=== PATIENT | female | born 1955 | race African-American/Black ===

== ENCOUNTER 2017-07-29 15:04 | Emergency (ER) | payer MEDICARE, MEDICAID ==
[~2017-07-29] VITALS: Ht 167.6 cm; Wt 108.9 kg
[2017-07-29] MEDS ORDERED: TRAMADOL HCL50 MG ORAL (17:10)
[2017-07-29] MEDS ORDERED: IBUPROFEN600 MG ORAL (17:10)
[2017-07-29 17:28] VITALS: BP 136/69
--- NOTE | 2017-08-01 20:01 | Emergency Room Report ---
History of Present Illness General Chief Complaint: Lower Extremity Injury Source: Patient Present Illness HPI The patient is a 62-year-old female presenting for left knee pain. She states that pain began 3 days ago after she slipped and felt knee bent at an awkward angle. Pain is now 9/10 dull ache and does not radiate. Worse with any movement. She denies falling or hitting the knee on any object. She denies any other symptoms Allergies: Coded Allergies: No Known Allergies (Unverified , 07/29/17) Patient History Past Medical History: see triage record Pertinent Family History: none Last Menstrual Period: n/a Reviewed Nursing Documentation: PMH: Agreed, PSxH: Agreed Nursing Documentation-PMH Past Medical History: No History, Except For Hx Hypertension: Yes Hx COPD: Yes Hx Gastrointestinal Problems: Yes - gerd, Hx Dialysis: No - osteoarthrits, HPV Review of Systems All Other Systems: negative except mentioned in HPI Physical Exam Vital Signs Date Time Temp Pulse Resp B/P (MAP) Pulse Ox O2 Delivery O2 Flow Rate FiO2 07/29/17 16:24 97.7 59 16 136/69 98 Room Air Sp02 EP Interpretation: reviewed, normal General Appearance: no apparent distress, alert, GCS 15, non-toxic Head: normocephalic, atraumatic Eyes: bilateral eye normal inspection, bilateral eye PERRL ENT: hearing grossly normal, normal pharynx, no angioedema, normal voice Musculoskeletal: normal range of motion, no calf tenderness, tender - medial L knee Neurologic: alert, oriented x3, responsive, motor strength/tone normal, sensory intact, speech normal Psychiatric: judgement/insight normal, memory normal, mood/affect normal, no suicidal/homicidal ideation Skin: normal color, no rash, warm/dry, well hydrated Procedures Splinting Splinting : Consent: Verbal Location: L knee Pre-Made Type: PORTILLO wrap Pre-Proc Neuro Vasc Exam: normal Post-Proc Neuro Vasc Exam: normal Patient Tolerated: Well Complications: None Medical Decision Making PA Attestation Dr. Del Cid is my supervising physician. Patient management was discussed with my supervising physician Diagnostic Impression: Primary Impression: Sprain, knee Qualified Codes: S83.92XA - Sprain of unspecified site of left knee, initial encounter ER Course The patient is a 62-year-old female presenting for left knee pain Ddx considered include but not limited to dislocation, sprain/strain, fracture, contusion PE: NAD L knee: There is tenderness to palpation of the medial region. No obvious deformity. No ecchymosis. No laxity. Full active range of motion. Portillo wrap was placed over the left knee in the patient will be discharged home with prescription for pain medications. She will followup with her primary doctor. She was told she may need MRI. ER precautions given Last Vital Signs Date Time Temp Pulse Resp B/P (MAP) Pulse Ox O2 Delivery O2 Flow Rate FiO2 07/29/17 17:28 97.7 71 22 136/69 100 Room Air Status: improved Disposition: HOME, SELF-CARE Condition: Improved Scripts Tramadol Hcl* (ULTRAM*) 50 Mg Tablet 50 MG ORAL Q6H Y for For Pain, #10 TAB 0 Refills Prov: FELICITAS SCHUSTER.Calin 07/29/17 Ibuprofen* (MOTRIN*) 600 Mg Tablet 600 MG ORAL Q8H Y for For Pain, #30 TAB 0 Refills Prov: FELICITAS SCHUSTER 07/29/17 Referrals: NOT CHOSEN [facility]/,REFERRING (PCP) Patient Instructions: Knee Sprain Additional Instructions: I discussed my findings with the patient. All questions and concerns have been answered. Treatment and medication compliance have been addressed. I advised the patient that they need to follow up with PMD in 3-5 days. Return to ED if symptoms worsen, new symptoms arise, or if needed for any reason. Patient verbalized understanding of discharge instructions. FELICITAS SCHUSTER Aug 01, 2017 20:00
== END 2017-07-29 17:28 | disposition home or self-care (01) ==
LOC: EMR 17:28
DX: S83.92XA Sprain of unspecified site of left knee, initial encounter (principal); W01.0XXA Fall on same level from slipping, tripping and stumbling without subsequent striking against object, initial encounter; Y92.89 Other specified places as the place of occurrence of the external cause; I10 Essential (primary) hypertension; J44.9 Chronic obstructive pulmonary disease, unspecified; K21.9 Gastro-esophageal reflux disease without esophagitis
CPT/HCPCS: 99282